=== PATIENT | female | born 1935 | race Caucasian/White ===

== ENCOUNTER 2021-04-10 09:58 | Emergency (ER) | payer MEDICARE, OTHER ==
[2021-04-10 10:34] LABS: BASOPHIL 0.9 % (0-2); EOSINOPHIL 3.5 % (0-7); HGB 15.2 g/dl (12.5-16.0); LYMPHOCYTE 18.9 % (15-48); MCH 28.5 pg (25.0-31.0); MCV 91.9 fL (78.0-100.0); MPV 9.9 fL (6.0-9.5); NEUTROPHIL 68.5 % (41-80); NRBC 0; PLT 267 K/uL (150-400); RBC 5.33 M/uL (4.20-5.40); RDW 14.3 % (11.5-14.0); WBC 4.6 K/uL (4.0-10.5)
[2021-04-10 10:35] LABS: BILIRUBIN NEGATIVE (NEGATIVE); BLOOD NEGATIVE Ery/uL (NEGATIVE); CLARITY CLEAR (CLEAR); COLOR YELLOW (YELLOW); GLUCOSE (U) NORMAL (NORMAL); LEUKOCYTES NEGATIVE Leu/uL (NEGATIVE); NITRITE NEGATIVE (NEGATIVE); PROTEIN NEGATIVE (NEGATIVE); SPECIFIC GRAVITY 1.015 (1.001-1.030); UROBILINOGEN 0.2 mg/dL (0.2-1.0)
[2021-04-10 10:56] LABS: ALBUMIN 3.8 g/dL (3.4-5.0); BILIRUBIN - TOTAL 0.4 mg/dL (0.2-1.0); BUN/CREAT RATIO (CALC) 26.9 RATIO; CREATININE 0.78 mg/dL (0.51-0.95); GLOBULIN (CALCULATION) 3.8 g/dL; POTASSIUM 3.5 mmol/L (3.5-5.1); TOTAL PROTEIN 7.6 g/dL (6.4-8.2)
== END 2021-04-10 13:09 | disposition home or self-care (01) ==
LOC: FER 09:58
PROVIDERS: Emergency Medicine
DX: R41.82 Altered mental status, unspecified (principal); Z86.73 Personal history of transient ischemic attack (TIA), and cerebral infarction without residual deficits
CPT/HCPCS: 36415; 70450; 71045; 80053; 81003; 85025

== ENCOUNTER 2022-03-15 10:08 | Inpatient (IN) | payer MEDICARE, OTHER ==
[~2022-03-15] VITALS: Ht 157.5 cm; Wt 66.8 kg
[~2022-03-15 10:08] MED LIST: BACLOFEN 10MG T10 MG PO; BREO ELLIPTA 11 EACH INH; CHILDREN'S ASPI81 MG PO; MIRALAX17 GM PO; NORCO 5-325 TA1 EACH PO; PROTONIX 40MG T40 MG PO; SINGULAIR10 MG PO; ZOLOFT50 M1 PO
[2022-03-15 10:54] LABS: BASOPHIL 0.5 % (0-2); EOSINOPHIL 0.5 % (0-7); HCT 31.4 % (37.0-47.0); HGB 9.9 g/dl (12.5-16.0); LYMPHOCYTE 7.5 % (15-48); MCH 29.6 pg (25.0-31.0); MCHC 31.5 g/dL (32.0-36.0); MONOCYTE 6.1 % (0-12); MPV 9.6 fL (6.0-9.5); NEUTROPHIL 84.7 % (41-80); NRBC 0; PLT 261 K/uL (150-400); RBC 3.34 M/uL (4.20-5.40); WBC 8.2 K/uL (4.0-10.5)
[2022-03-15 11:17] LABS: BILIRUBIN NEGATIVE (NEGATIVE); BLOOD 2+ Ery/uL (NEGATIVE); CLARITY CLEAR (CLEAR); COLOR YELLOW (YELLOW); GLUCOSE (U) NORMAL (NORMAL); LEUKOCYTES 2+ Leu/uL (NEGATIVE); NITRITE POSITIVE (NEGATIVE); PROTEIN NEGATIVE (NEGATIVE); SPECIFIC GRAVITY 1.015 (1.001-1.030); UROBILINOGEN 0.2 mg/dL (0.2-1.0); pH 8.5 (5.0-9.0)
[2022-03-15 11:22] LABS: ALBUMIN 2.5 g/dL (3.4-5.0); BILIRUBIN - TOTAL 0.8 mg/dL (0.2-1.0); BUN/CREAT RATIO (CALC) 34.7 RATIO; CREATININE 0.72 mg/dL (0.51-0.95); GLOBULIN (CALCULATION) 3.5 g/dL; POTASSIUM 3.9 mmol/L (3.5-5.1)
[2022-03-15 11:26] LABS: BACTERIA 4+
[2022-03-16 06:08] LABS: BASOPHIL 0.5 % (0-2); EOSINOPHIL 3.6 % (0-7); HCT 28.4 % (37.0-47.0); HGB 8.8 g/dl (12.5-16.0); MCH 29.6 pg (25.0-31.0); MCV 95.6 fL (78.0-100.0); MONOCYTE 9.7 % (0-12); MPV 10.4 fL (6.0-9.5); NEUTROPHIL 76.4 % (41-80); NRBC 0; PLT 261 K/uL (150-400); RBC 2.97 M/uL (4.20-5.40); WBC 7.5 K/uL (4.0-10.5)
[2022-03-16 06:30] LABS: BUN/CREAT RATIO (CALC) 36.5 RATIO; CREATININE 0.63 mg/dL (0.51-0.95); POTASSIUM 4.2 mmol/L (3.5-5.1)
--- NOTE | 2022-03-16 12:47 | NUR ---
03/16/22 Ms. Bryant was admitted to [facility] on 03/14/22 for SNF after a fracture hip. She was admitted back to the hospital on 03/15 with dx of CVA. Purvi Rodriguez, daughter, has decided on comfort care. Ms. Rodriguez, is deciding on Palliative Care at [facility] vs home with Hospice. Education was provided re: Palliative Care being covered by Medicare up to 14 days. [facility] will have a financiakl consult with family before offering a bed. [facility] will meet with family today for an educational visit.
--- NOTE | 2022-03-17 00:38 | NUR ---
INCREASED RESTLESSNESS NOTED, ATTEMPTING TO REMOVE O2, REORIENTED TO AREA, REASSURANCE PROVIDED, MEDICATION MS GIVEN FOR RESTLESSNESS AND MOANING, EFFECTIVE AFTER 15 MINUTES LESS MOANING AND SNORING NOTED AT TIMES.
[2022-03-17 09:01] LABS: BASOPHIL 0.6 % (0-2); EOSINOPHIL 5.5 % (0-7); HCT 31.5 % (37.0-47.0); HGB 9.8 g/dl (12.5-16.0); LYMPHOCYTE 13.7 % (15-48); MCH 29.6 pg (25.0-31.0); MCHC 31.1 g/dL (32.0-36.0); MCV 95.2 fL (78.0-100.0); MPV 10.2 fL (6.0-9.5); NEUTROPHIL 70.2 % (41-80); NRBC 0; PLT 295 K/uL (150-400); RBC 3.31 M/uL (4.20-5.40); RDW 15.1 % (11.5-14.0); WBC 8.8 K/uL (4.0-10.5)
[2022-03-17 09:43] LABS: BUN/CREAT RATIO (CALC) 27.9 RATIO; CREATININE 0.61 mg/dL (0.51-0.95); POTASSIUM 4.1 mmol/L (3.5-5.1)
[2022-03-19] MEDS ORDERED: ALBUTEROL2.5 MG/3 M NEB (08:43)
[2022-03-19] MEDS ORDERED: LOVENOX40 MG/0.4 SC (08:43)
[2022-03-19] MEDS ORDERED: ASPIRIN PR (08:43)
--- NOTE | 2022-03-19 09:26 | NUR ---
03/19/22 Ms. Rodriguez, daughter, has decided to take Ms. Bryant home with Hospice. A referral was made to [facility] and Hosp[facility] was copied for home 02 @ 3 L and a hospital bed. - The EMS ABN form was explained to Ms. Rodriguez. She states that she is willing to sign the form.
== END 2022-03-19 13:30 | disposition hospice, home (50) | DRG 64 ==
LOC: FER 10:08 → FTCU 12:33 → FMS 12:33
PROVIDERS: Emergency Medicine; ADMIT Internal Medicine
PROC: 0T9B70Z Drainage of Bladder with Drainage Device, Via Natural or Artificial Opening (ICD-10-PCS; principal; 2022-03-15)
DX: I63.512 Cerebral infarction due to unspecified occlusion or stenosis of left middle cerebral artery (principal); J96.91 Respiratory failure, unspecified with hypoxia; N39.0 Urinary tract infection, site not specified; G81.91 Hemiplegia, unspecified affecting right dominant side; G35 Multiple sclerosis; Z66 Do not resuscitate; Z51.5 Encounter for palliative care; B96.89 Other specified bacterial agents as the cause of diseases classified elsewhere; R29.717 NIHSS score 17; M81.0 Age-related osteoporosis without current pathological fracture; I10 Essential (primary) hypertension; E78.5 Hyperlipidemia, unspecified; D64.9 Anemia, unspecified; S72.001D Fracture of unspecified part of neck of right femur, subsequent encounter for closed fracture with routine healing; Z90.710 Acquired absence of both cervix and uterus; Z83.3 Family history of diabetes mellitus; Z80.3 Family history of malignant neoplasm of breast
CPT/HCPCS: 36415; 36600; 70450; 71045; 80048; 80053; 81001; 82803; 84443; 84484; 85025; 87040; 87076; 87088; 87186; 92526; 93005; 94640; 97110; 97162; 97167; 97530; 97530-GP; J0692; J0696; J1650; J2060; J2270; J2405; J3480